=== PATIENT | female | born 1980 | race Caucasian/White ===

== ENCOUNTER 2022-03-27 15:46 | Inpatient (IN) ==
[2022-03-27] MEDS ORDERED: IOPAMIDOL 100 ML BOTTLE IV ONE (15:47)
[2022-03-27] MEDS ORDERED: MECLIZINE 25 MG TABLET PO ONE (16:04)
[2022-03-27] MEDS ORDERED: DIAZEPAM 10 MG/2 ML SYRINGE IV ONE (16:04)
[2022-03-27] MEDS ORDERED: 0.9 % SODIUM CHLORIDE 1,000 ML IV ONE (16:04)
[2022-03-27] MEDS ORDERED: KETOROLAC 30 MG/ML VIAL IV ONE (16:06)
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
[2022-03-27 16:56] LABS: Basophils # (Auto) 0.02 K/mcL (0.00-0.30); Basophils % (Auto) 0.4 % (0.0-2.0); Eosinophils # (Auto) 0.12 K/mcL (0.00-0.70); Eosinophils % (Auto) 2.4 % (0.0-7.0); Hematocrit 38.1 % (34.1-44.9); Hemoglobin 12.8 g/dL (11.2-15.7); Lymphocytes # (Auto) 1.15 K/mcL (1.50-4.80); Lymphocytes % (Auto) 23.1 % (15.5-49.0); Mean Cell Volume 88.8 fL (80.0-100.0); Mean Corpuscular HGB Conc 33.6 g/dL (31.0-36.0); Mean Platelet Volume 10.9 fL (7.4-10.4); Monocytes # (Auto) 0.41 K/mcL (0.10-0.90); Monocytes % (Auto) 8.2 % (1.0-12.0); Neutrophils % (Auto) 65.9 % (38.0-78.0); Platelet Count 269 K/mcL (140-440); RBC 4.29 M/mcL (3.59-5.38); Red Cell Distribution Width 11.5 % (11.5-14.5)
[2022-03-27 17:14] LABS: ALT/SGPT 9 U/L (<40); AST/SGOT 15 U/L (<32); Albumin 3.9 gm/dL (3.2-5.2); Albumin/Globulin Ratio 1.8 (1.0-2.3); Alkaline Phosphatase 78 U/L (39-117); Bilirubin,Total 0.2 mg/dL (0.1-1.0); Blood Urea Nitrogen 12 mg/dL (6-20); Calcium 8.5 mg/dL (8.6-10.4); Carbon Dioxide 24 mmol/L (22-30); Chloride 102 mmol/L (96-108); Globulin 2.2 gm/dL (2.2-3.7); Glomerular Filtration Rate 112; Glucose 94 mg/dL (70-105)
[2022-03-27 17:34] LABS: Appearance,Urine CLEAR (Clear); Bilirubin,Urine Negative (Negative); Color,Urine STRAW; Culture Indicated,Urine No; Glucose,Urine (UA) Negative (Negative); Ketones,Urine Negative (Negative); Leukocyte Esterase,Urine Negative /uL (Negative); Nitrate,Urine Negative (Negative); Protein,Urine Negative (Negative); Urine Blood Negative (Negative); Urobilinogen,Urine Negative
[2022-03-27 17:42] LABS: Amphetamine Screen,Urine None detected; Barbiturate Screen,Urine None detected; Benzodiazepines Screen,Urine None detected; Cannabinoid Screen,Urine None detected; Cocaine Screen,Urine None detected; Opiate Screen,Urine None detected; Oxycodone, Urine Screen None detected; Phencyclidine Screen,Urine None detected
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
[2022-03-27] MEDS ORDERED: ASPIRIN 81 MG TAB.CHEW CHEWED ONE (21:55)
[2022-03-27] MEDS ORDERED: hydrALAZINE 20 MG/ML VIAL IV PRN (22:50)
[2022-03-27] MEDS ORDERED: BISACODYL 10 MG SUPP.RECT PR PRN (22:50)
[2022-03-27] MEDS ORDERED: ONDANSETRON 4 MG/2 ML VIAL IV PRN (22:50)
[2022-03-27] MEDS ORDERED: traMADol 50 MG TABLET PO PRN (22:50)
[2022-03-27] MEDS ORDERED: NALOXONE HCL 0.4 MG/ML VIAL IV PRN (22:50)
[2022-03-27] MEDS ORDERED: DILTIAZEM 25 MG/5 ML VIAL IV PRN (22:50)
[2022-03-27] MEDS ORDERED: PROCHLORPERAZINE 10 MG/2 ML VIAL IV PRN (22:50)
[2022-03-27] MEDS ORDERED: MELATONIN 3 MG TABLET PO PRN (22:50)
[2022-03-27] MEDS ORDERED: ALBUTEROL SULFATE 2.5 MG/3 ML NEBULIZER NEB PRN (22:50)
[2022-03-27] MEDS ORDERED: ONDANSETRON 4 MG ODT TABLET SL PRN (22:50)
[2022-03-27] MEDS ORDERED: ACETAMINOPHEN 325 MG TABLET PO PRN (22:50)
[2022-03-27 23:27] LABS: Prothrombin Time 13.4 sec (11.9-14.5)
[2022-03-27 23:41] LABS: Thyroid Stimulating Hormone 1.33 uIU/mL (0.27-5.01)
[2022-03-28 00:04] LABS: Estimated Average Glucose(eAG) 94 mg/dL; Hemoglobin A1C 4.9 % Hgb (4.0-6.0)
--- NOTE | 2022-03-28 05:06 | XRay Report ---
CLINICAL INFORMATION: Dyspnea COMPARISON: 09/19/2020 TECHNIQUE: Portable FINDINGS: The heart size, mediastinum and pulmonary vessels are unremarkable. The lungs are clear. There are no effusions. The bones and soft tissues are within normal limits. IMPRESSION: Normal chest. Interpreted and Authenticated by: Valentin Jessica 03/28/22
--- NOTE | 2022-03-28 05:10 | Cat Scan Report ---
CLINICAL INFORMATION: Headache and vertigo COMPARISON: 06/27/2017 TECHNIQUE: 2.5 mm helical slices were obtained in the skull base to vertex. Following reconstruction, axial reformatted images were reviewed at bone and parenchymal windows. The exam was performed using radiation dose optimization techniques including, but not limited to, automated exposure control, adjustment of the mA and/or kV according to patient size and use of iterative reconstruction technique. FINDINGS: The ventricles, sulci, fissures, and cisterns are normal in size and configuration. No extra-axial fluid collections are identified. The cerebrum, brainstem and cerebellum are unremarkable. There is no evidence of hemorrhage, mass effect, or edema. Bone windows show no osseous abnormality. IMPRESSION: Normal head CT without contrast. Interpreted and Authenticated by: Valentin Jessica 03/28/22
[2022-03-28] MEDS: 0.9 % SODIUM CHLORIDE 10 ML SYRINGE IV SCH ×3 (05:28→21:02)
--- NOTE | 2022-03-28 06:04 | Cat Scan Report ---
CLINICAL INFORMATION: Vertigo with right-sided weakness and facial numbness. COMPARISON: None. TECHNIQUE: 80 cc of Isovue-370 were injected intravenously , and using SmartPrep to maximize cerebral arterial opacification, 0.625 mm helical slices were obtained from the skull base through the cerebral vertex. Following reconstruction , sagittal, coronal and axial reformatted images were processed and reviewed at multiple windows and levels. 3D volume rendered and MIP images were acquired at a independent workstation. The exam was performed using radiation dose optimization techniques including, but not limited to, automated exposure control, adjustment of the mA and/or kV according to patient size and use of iterative reconstruction technique. FINDINGS: The intracranial internal carotid, vertebral, basilar, anterior, middle and posterior cerebral arteries and their branches are well-opacified and normal in contour and caliber without significant stenosis, occlusion or other pathology. Superficial/deep cerebral veins and deep venous sinuses are widely patent IMPRESSION: Normal exam Interpreted and Authenticated by: Valentin Jessica 03/28/22
--- NOTE | 2022-03-28 06:09 | Cat Scan Report ---
CLINICAL INFORMATION: Vertigo and right-sided weakness COMPARISON: None. TECHNIQUE: 80 cc of Isovue-300 were injected intravenously followed by 40 cc of normal saline flush. Using SmartPrep, 0.625 helical slices were obtained from the thoracic aortic arch through the [place]. Following reconstruction, 2.5 mm sagittal, coronal and axial reformatted images were processed. MIPS , 3-D volume rendering and CPR images were also constructed. The exam was performed using radiation dose optimization techniques including, but not limited to, automated exposure control, adjustment of the mA and/or kV according to patient size and use of iterative reconstruction technique. FINDINGS: The thoracic aortic arch is normal diameter with minimal intimal thickening and conventional aortic branching. The brachiocephalic, both subclavian, both common, internal and external carotid and both vertebral arteries are widely patent without significant abnormality. No soft tissue abnormality. The cervical spine is normal in curvature and alignment. No osseous abnormality. C5-6 mild broad disc protrusion results in mild central canal narrowing. IMPRESSION: Normal bilateral carotid, vertebral, subclavian and brachiocephalic arteries and normal thoracic aortic arch C5-6 mild broad disc protrusion resulting in mild central canal narrowing Interpreted and Authenticated by: Valentin Jessica 03/28/22
[2022-03-28 06:59] LABS: Basophils # (Auto) 0.02 K/mcL (0.00-0.30); Basophils % (Auto) 0.5 % (0.0-2.0); Eosinophils # (Auto) 0.15 K/mcL (0.00-0.70); Hematocrit 35.8 % (34.1-44.9); Hemoglobin 11.7 g/dL (11.2-15.7); Mean Cell Volume 90.2 fL (80.0-100.0); Mean Corpuscular HGB Conc 32.7 g/dL (31.0-36.0); Mean Platelet Volume 10.5 fL (7.4-10.4); Monocytes # (Auto) 0.47 K/mcL (0.10-0.90); Monocytes % (Auto) 12.4 % (1.0-12.0); Neutrophils % (Auto) 46.1 % (38.0-78.0); Platelet Count 244 K/mcL (140-440); RBC 3.97 M/mcL (3.59-5.38); Red Cell Distribution Width 11.3 % (11.5-14.5); WBC 3.8 K/mcL (4.5-11.0)
[2022-03-28 07:36] LABS: ALT/SGPT 8 U/L (<40); AST/SGOT 12 U/L (<32); Albumin 3.5 gm/dL (3.2-5.2); Albumin/Globulin Ratio 1.9 (1.0-2.3); Alkaline Phosphatase 64 U/L (39-117); Bilirubin,Total 0.2 mg/dL (0.1-1.0); Blood Urea Nitrogen 13 mg/dL (6-20); Calcium 8.2 mg/dL (8.6-10.4); Carbon Dioxide 22 mmol/L (22-30); Chloride 107 mmol/L (96-108); Globulin 1.8 gm/dL (2.2-3.7); Glomerular Filtration Rate 112; Glucose 82 mg/dL (70-105)
[2022-03-28 07:37] LABS: C-Reactive Protein < 0.30 mg/dL (0.03-0.80); HDL Cholesterol 29 mg/dL (>40); LDL Cholesterol,Calculated 49 mg/dL (<100); Non-HDL Cholesterol 58 mg/dL (<130); Triglycerides 49 mg/dL (<150)
[2022-03-28] MEDS: DOCUSATE SODIUM 100 MG CAPSULE PO SCH ×2 (08:15→21:02)
[2022-03-28] MEDS: PANTOPRAZOLE 40 MG TABLET PO SCH (08:21)
[2022-03-28] MEDS: ASPIRIN 81 MG TAB.CHEW CHEWED SCH (08:21)
[2022-03-28] MEDS ORDERED: ENOXAPARIN 40 MG/0.4 ML SYRINGE SQ SCH (09:00)
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
--- NOTE | 2022-03-28 13:25 | Internal Med Progress Note ---
SUBJECTIVE Subjective Patient information: Note initiated : 03/28/22 at 1:23 pm Service Date, if different from initiated Date: [] Patient: Mikaela Aguayo 41 y/o F admitted on 03/28/22 for Dizziness, facial numbness. Chief Complaint: [] Interval history: 41-year-old female with a history of PE x2 not on anticoagulation history anxiety was brought to the ER because of dizziness. Patient was complaining of room spinning around initially thought to be BPPV but during encounter patient explained she also has some weakness of the right upper and lower extremity. Stroke neurology was consulted and she is out of the tPA window this was happened around 2 PM underwent CTA of the head and neck and CT which was unremarkable for any large vessel occlusions. Stroke neurologist recommended admitting for MRI and starting her on aspirin 81 mg. Discussed with the patient and earliest we could get an MRI is on Tuesday morning and patient agreed with the plan Patient denied any drug use no history of smoking no alcoholism Patient has family history of clotting disorder never tested for any genetic predisposition. Patient had an episode of PE before the pandemic and was on warfarin then she developed another 1 and changed to Eliquis and later stopped after 1 year. 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 Genitourinary: no dysuria or difficulty voiding Musculoskeletal: no arthralgia or myalgia Integumentary: no skin lesion or wound Neurological: Weakness of the right upper and lower extremity and vertigo Psychiatric: no anxiety or depression Physical exam Head: No bruises, normal-appearing nontraumatic Eyes: normal appearance, no scleral icterus. Neck: full ROM Respiratory: no respiratory distress. Cardiovascular: normal rate and rhythm, S1, S2. GI/Abdominal: soft, nontender, no guarding. Extremities: full range of motion, nontender. Neurological: CN II-XII intact, patient has nystagmus on examination [place]- Hallpike test was negative for BPPV Psychiatric: normal mood. Skin: warm, normal color Constitutional Vitals: Vital Signs Temp Pulse Resp BP Pulse Ox 99.4 F H 69 16 91/56 98 03/28/22 12:01 03/28/22 12:01 03/28/22 12:01 03/28/22 12:01 03/28/22 12:01 Period Temp Pulse Resp BP Sys/Ramirez Pulse Ox Last 24 Hr 98.0 F-99.4 F 57-75 11-21 89-118/56-84 97-100 Intake and Output 03/27/22 03/28/22 03/28/22 21:59 05:59 13:59 Intake Total 1000 240 360 Output Total 900 Balance 1000 240 -540 Weight 55.338 kg 54.794 kg Intake & Output: Intake & Output 03/27/22 03/28/22 03/28/22 21:59 05:59 13:59 Intake Total 1000 240 360 Output Total 900 Balance 1000 240 -540 Weight 55.338 kg 54.794 kg Intake: IV 1000 Sodium Chloride 0.9% 1,000 ml @ 1000 Wide Open IV .Q0M ONE Rx#: [id number] Oral 240 360 Output: Void Amount 900 Other: Meal Breakfast Percent of Meal Consumed 100% Feeding Ability Independent Urine Appearance Clear Urine Color Bright Yellow Urine Odor Normal OBJ DATA Labs CBC & Chem 7: 03/28/22 06:37 03/28/22 06:37 Labs: Abnormal Lab Results 03/28/22 03/28/22 03/28/22 06:37 06:37 06:36 WBC 3.8 L RDW 11.3 L MPV 10.5 H [place] % (Auto) 12.4 H Lymph # (Auto) 1.40 L Absolute Neutrophils 1.74 L Calcium 8.2 L Total Protein 5.3 L Globulin 1.8 L HDL Cholesterol 29 L 03/27/22 03/27/22 16:18 16:18 WBC RDW MPV 10.9 H [place] % (Auto) Lymph # (Auto) 1.15 L Absolute Neutrophils Calcium 8.5 L Total Protein Globulin HDL Cholesterol Meds: Medications Acetaminophen (Acetaminophen 325 Mg Tablet) 650 mg PO Q6HP PRN; Protocol PRN Reason: Per Pain Protocol/Fever > 101 Albuterol Sulfate (Albuterol Sulfate 2.5 Mg/3 Ml Nebulizer) 2.5 mg NEB Q2HP PRN PRN Reason: Shortness Of Breath Aspirin (Aspirin 81 Mg Tab.Chew) 81 mg CHEWED DAILY [place] Last Admin: 05/29/22 08:21 Dose: 81 mg Documented by: Bisacodyl (Bisacodyl 10 Mg Supp.Rect) 10 mg LA Q2-3DAYS PRN PRN Reason: Constipation Diltiazem HCl (Diltiazem 25 Mg/5 Ml Vial) 10 mg IV Q4HP PRN PRN Reason: Tachyarrhythmias Docusate Sodium (Docusate Sodium 100 Mg Capsule) 100 mg PO BID [facility] Last Admin: 03/28/22 08:15 Dose: Not Given Documented by: Enoxaparin Sodium (Enoxaparin 40 Mg/0.4 Ml Syringe) 40 mg SQ DAILY [facility] Last Admin: 03/28/22 08:21 Dose: 40 mg Documented by: Hydralazine HCl (Hydralazine 20 Mg/Ml Vial) 10 mg IV Q4-6HP PRN PRN Reason: Hypertension Melatonin (Melatonin 3 Mg Tablet) 3 mg PO HSP PRN PRN Reason: Insomnia Naloxone HCl (Naloxone Hcl 0.4 Mg/Ml Vial) 0.1 mg IV Q2MIN PRN PRN Reason: Opiate Reversal Ondansetron HCl (Ondansetron 4 Mg/2 Ml Vial) 4 mg IV Q6HP PRN PRN Reason: Nausea And Vomiting Ondansetron HCl (Ondansetron 4 Mg Odt Tablet) 4 mg SL Q6HP PRN PRN Reason: Nausea And Vomiting Pantoprazole Sodium (Pantoprazole 40 Mg Tablet) 40 mg PO QAMAC [facility] Last Admin: 03/28/22 08:21 Dose: 40 mg Documented by: Prochlorperazine (Prochlorperazine 10 Mg/2 Ml Vial) 5 mg IV Q4HP PRN PRN Reason: Nausea And Vomiting Senna (Sennosides 1 Tablet) 2 tab PO [facility] Sodium Chloride (0.9 % Sodium Chloride 10 Ml Syringe) 10 ml IV Q8 [facility] Last Admin: 03/28/22 05:28 Dose: 10 ml Documented by: Tramadol HCl (Tramadol 50 Mg Tablet) 50 mg PO Q4-6HP PRN; Protocol PRN Reason: Pain Trazodone HCl (Trazodone Hcl 50 Mg Tablet) 25 mg PO HSP PRN PRN Reason: Insomnia A/P Narrative Plan of Treatment: Suspected acute CVA Possible hypercoagulability History of PE x2 no hypercoagulable work-up per report not on active anticoagulation CTA and CT did not show any occlusive disease We will start the patient on aspirin and statin 40 mg Monitor blood pressure permissive hypertension 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 ordered the earliest we could obtain is on Tuesday History of epilepsy Last episode was 20 years ago not on any active treatment Lorazepam as needed for seizure episodes History of anxiety Monitor the patient on lorazepam as needed Recent ankle surgery More than 4 weeks ago Monitor for any pain DVT prophylaxis-SCDs and subcu Lovenox CODE STATUS-full code Expect length of stay 1-2 midnights Time Spent With Patient Time: Total time spent is greater than 50% in coordination of care (as documented) at patient's floor/unit and/or counseling patient: QUALITY Stroke Onset of Symptoms Date: 03/27/22 Onset of Symptoms Time: 14:00 Symptom Onset Unknown: No VTE Deep Vein Thrombosis/Pulmonary Embolism Present on Admission: No
[2022-03-28] MEDS: 0.9 % SODIUM CHLORIDE 1,000 ML IV SCH ×2 (13:38→21:04)
[2022-03-28] MEDS ORDERED: GABAPENTIN 100 MG CAPSULE PO SCH (13:45)
[2022-03-28] MEDS ORDERED: HYDROcodone/APAP 5/325MG TABLET PO PRN (16:52)
[2022-03-28] MEDS ORDERED: EXCEDRIN MIGRAINE PO PRN (17:28)
[2022-03-28] MEDS ORDERED: SENNOSIDES 1 TABLET PO SCH (21:00)
[2022-03-28] MEDS: traZODone HCL 50 MG TABLET PO PRN ×2 (21:01→22:47)
[2022-03-28] MEDS: GABAPENTIN 100 MG CAPSULE PO SCH (21:02)
[2022-03-28] MEDS ORDERED: IOPAMIDOL 100 ML BOTTLE IV ONE (21:52)
[2022-03-29] MEDS: 0.9 % SODIUM CHLORIDE 1,000 ML IV SCH ×2 (01:03→07:36)
[2022-03-29] MEDS ORDERED: APIXABAN 5 MG TABLET PO ONE (01:33)
[2022-03-29] MEDS: APIXABAN 5 MG TABLET PO SCH ×2 (01:37→07:43)
[2022-03-29] MEDS: 0.9 % SODIUM CHLORIDE 10 ML SYRINGE IV SCH ×2 (05:12→13:13)
[2022-03-29 06:54] LABS: Basophils # (Auto) 0.02 K/mcL (0.00-0.30); Basophils % (Auto) 0.6 % (0.0-2.0); Eosinophils # (Auto) 0.17 K/mcL (0.00-0.70); Eosinophils % (Auto) 5.1 % (0.0-7.0); Hematocrit 36.4 % (34.1-44.9); Hemoglobin 11.4 g/dL (11.2-15.7); Lymphocytes # (Auto) 1.26 K/mcL (1.50-4.80); Lymphocytes % (Auto) 37.8 % (15.5-49.0); Mean Cell Volume 93.1 fL (80.0-100.0); Mean Corpuscular HGB Conc 31.3 g/dL (31.0-36.0); Mean Platelet Volume 10.5 fL (7.4-10.4); Monocytes # (Auto) 0.39 K/mcL (0.10-0.90); Monocytes % (Auto) 11.7 % (1.0-12.0); Neutrophils % (Auto) 44.8 % (38.0-78.0); Platelet Count 241 K/mcL (140-440); RBC 3.91 M/mcL (3.59-5.38); Red Cell Distribution Width 11.5 % (11.5-14.5); WBC 3.3 K/mcL (4.5-11.0)
[2022-03-29] MEDS: PANTOPRAZOLE 40 MG TABLET PO SCH (07:10)
[2022-03-29 07:11] LABS: ALT/SGPT 8 U/L (<40); AST/SGOT 14 U/L (<32); Albumin 3.4 gm/dL (3.2-5.2); Albumin/Globulin Ratio 1.8 (1.0-2.3); Alkaline Phosphatase 64 U/L (39-117); Bilirubin,Total 0.2 mg/dL (0.1-1.0); Blood Urea Nitrogen 8 mg/dL (6-20); Calcium 8.1 mg/dL (8.6-10.4); Carbon Dioxide 21 mmol/L (22-30); Chloride 110 mmol/L (96-108); Globulin 1.9 gm/dL (2.2-3.7); Glomerular Filtration Rate 128; Glucose 83 mg/dL (70-105)
[2022-03-29] MEDS: ASPIRIN 81 MG TAB.CHEW CHEWED SCH (07:42)
[2022-03-29] MEDS: DOCUSATE SODIUM 100 MG CAPSULE PO SCH ×2 (07:43→07:44)
[2022-03-29] MEDS: GABAPENTIN 100 MG CAPSULE PO SCH (07:43)
--- NOTE | 2022-03-29 08:30 | Cat Scan Report ---
INDICATION: h/o pe x 2 acute chest pain COMPARISON: Previous CT scan dated 06/26/2020 TECHNIQUE: Axial images obtained through the chest. 41ml Isovue 370 injected intravenously, and scanning was performed during pulmonary arterial phase. Sagittally and coronally reformatted images were obtained. MIP reformatted images. FINDINGS: The examination was initially interpreted by [facility] Lungs:Pleural-based left lower lobe pulmonary parenchymal density is unchanged. This is probably secondary to previous pulmonary infarction and chronic scarring. Lungs are otherwise negative. There is no bronchiectasis. No honeycombing. No acute parenchymal infiltrate or mass. Mediastinum, vascular:Main pulmonary artery, right pulmonary artery, left pulmonary artery are negative. No pulmonary arterial enlargement. No CT evidence for pulmonary arterial hypertension. There is an irregular intraluminal filling defect within the left lower lobe pulmonary parenchymal artery extending into proximal segmental branches. This is unchanged since 06/26/2020. Recurrent pulmonary embolism is considered very unlikely and this appearance is most consistent with chronic pulmonary embolism and intraluminal web formation. No acute pulmonary embolism. No new intraluminal abnormality. Heart:No cardiomegaly. No pericardial effusion. No significant cardiomegaly. There is no reflux of contrast material into the hepatic veins or inferior vena cava. No evidence for right heart strain Pleura:No significant pleural effusion. No pleural mass or calcification Axilla, supraclavicular regions, chest wall:No pathologic axillary or supraclavicular adenopathy. Musculoskeletal:Negative thoracic spine. No compression fracture. No lytic lesion. No rib or sternal lesions Upper Abdomen:Negative IMPRESSION: 1. Chronic pulmonary embolism with intraluminal abnormality in the left lower lobe pulmonary artery and proximal segmental branches. 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 No acute pulmonary embolism 3. No significant enlargement of the main pulmonary artery, right pulmonary artery, left pulmonary artery. No CT findings of pulmonary arterial hypertension 4. No contrast reflux. No evidence for right heart strain The exam was performed using radiation dose optimization techniques including, but not limited to, automated exposure control, adjustment of the mA and/or kV according to patient size and use of iterative reconstruction technique. Interpreted and Authenticated by: Valentin Soto 03/29/22
[2022-03-29] MEDS ORDERED: NICOTINE 21 MG PATCH TOPICAL SCH (10:00)
--- NOTE | 2022-03-29 10:29 | Magnetic Resonance Report ---
INDICATION: new acute cva TECHNIQUE: Limited MRI scan. Sagittal T1-weighted images. Axial flair and T2 weighted images. Axial diffusion weighted images and ADC imaging COMPARISON: Brain CT scan dated 03/27/2022 FINDINGS: No restricted diffusion. No acute infarction. There are scattered small foci of increased signal intensity in the white matter of both cerebral hemispheres. Findings are nonspecific. No localized mass effect. No acute abnormality. No cerebral atrophy or hydrocephalus. No extra-axial come intracranial abnormality. Normal flow void within vessels at the base of the brain. IMPRESSION: No acute infarction. Interpreted and Authenticated by: Valentin Soto 03/29/22
--- NOTE | 2022-03-29 11:42 | Discharge Summary ---
Discharge Provider Provider IMPORTANT FOLLOW-UP INFORMATION FOR PCP: Patient information: Note initiated : 03/29/22 at 11:41 am Service Date, if different from initiated Date: [] Patient: Mikaela Aguayo 41 y/o F admitted on 03/28/22 for Dizziness, facial numbness. Chief Complaint: [] Date of admission: 03/28/22 00:13 Discharge date: 03/29/22 Primary care physician: Cinthia Gu DO Consults: 03/27/22 Consult to Physician [CONS] Stat Comment: Consulting Provider: Lynette Do Reason For Exam: Physician to Consult COURSE Hospital Course Hospital course: Suspected acute CVA -MRI negative Possible BPPV Possible hypercoagulability Patient presented with active vertigo and reported hand numbness and tingling and weakness History of PE x2 no hypercoagulable work-up per report not on active anticoagulation CTA and CT of the head did not show any occlusive disease We will start the patient on aspirin and statin 40 mg MRI came back negative for any acute stroke Telemetry was unremarkable Patient's symptoms resolved Based on her presentation and other work-up this could be either an embolic TIA or BPPV Patient did have history of BPPV in the past Plan If she continued having symptoms or recurrence she needs to establish with a neurology Outpatient physical therapy and meclizine as needed Starting her on Eliquis with a history of 2 episodes of PE and 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 History of thromboembolism Patient does have history of thromboembolism x2 Underwent CTA due to episodes of chest pain She does have chronic thrombus in the left suspect subsegmental Because of the chronic thrombus starting her on Eliquis and with a 2 episodes of PE She also needs to establish with hematology for genetic work-up History of epilepsy Last episode was 20 years ago not on any active treatment Lorazepam as needed for seizure episodes History of anxiety Monitor the patient on lorazepam as needed Recent ankle surgery More than 4 weeks ago Monitor for any pain 41-year-old female with a history of PE x2 not on anticoagulation history anxiety was brought to the ER because of dizziness. Patient was complaining of room spinning around initially thought to be BPPV but during encounter patient explained she also has some weakness of the right upper and lower extremity. Stroke neurology was consulted and she is out of the tPA window this was happened around 2 PM underwent CTA of the head and neck and CT which was unremarkable for any large vessel occlusions. Stroke neurologist recommended admitting for MRI and starting her on aspirin 81 mg. Discussed with the patient and earliest we could get an MRI is on Tuesday morning and patient agreed with the plan Patient denied any drug use no history of smoking no alcoholism Patient has family history of clotting disorder never tested for any genetic predisposition. Patient had an episode of PE before the pandemic and was on warfarin then she developed another 1 and changed to Eliquis and later stopped after 1 year. 03/28 She is feeling better No worsening symptoms surveillance system monitor unremarkable 03/29 She underwent MRI which did not show any acute ischemia or infarction This could still be an embolic TIA or BPPV Patient's symptoms significantly improved she did not have any dizziness during my encounter she was sitting up from laying down Patient reported symptoms only happen when she moves quickly which is against stroke Advised the patient to follow-up with neurology if she continued having symptoms Follow-up with the primary care We will discharge her on meclizine for symptoms and outpatient physical therapy as needed Review of systems Constitutional: No reported fatigue no chills, no fever Eyes: no vision changes or pain Cardiovascular: no chest pain, no palpitations Respiratory: no cough or dyspnea Gastrointestinal: no nausea and stil have abdominal discomfort. Genitourinary: no dysuria or difficulty voiding Musculoskeletal: no arthralgia or myalgia Integumentary: no skin lesion or wound Neurological: no focal weakness or numbness dizziness improved significantly Psychiatric: no anxiety or depression Physical exam Head: No bruises, normal-appearing nontraumatic Respiratory: no respiratory distress. Cardiovascular: normal rate and rhythm, S1, S2. GI/Abdominal: soft, nontender, no guarding. Extremities: full range of motion, nontender. Neurological: CN II-XII intact, intact motor, intact sensation. Psychiatric: Appears to be anxious Discharge diagnosis: Vertigo -suspected CVA, BPPV Time Spent with Patient Time attestation: Total time spent providing and/or coordinating discharge services: Time spent: Greater than 30 minutes EXAM Constitutional Vitals: Temp Pulse Resp BP Pulse Ox 98.6 F 75 16 92/63 97 03/29/22 07:41 03/29/22 08:09 03/29/22 03:51 03/29/22 08:00 03/29/22 08:09 Discharge Data Data Completed and Pending Labs on day of discharge: Labs from last 24 hours 03/29/22 03/29/22 03/29/22 06:12 06:12 06:12 WBC 3.3 L RBC 3.91 Hgb 11.4 Hct 36.4 MCV 93.1 MCH 29.2 MCHC 31.3 RDW 11.5 Plt Count 241 MPV 10.5 H Neut % (Auto) 44.8 Lymph % (Auto) 37.8 Floyd % (Auto) 11.7 Eos % (Auto) 5.1 Baso % (Auto) 0.6 Lymph # (Auto) 1.26 L Floyd # (Auto) 0.39 Eos # (Auto) 0.17 Baso # (Auto) 0.02 Absolute Neutrophils 1.49 L Sodium 139 Potassium 3.8 Chloride 110 H Carbon Dioxide 21 L Anion Gap 8.0 BUN 8 Creatinine 0.4 L GFR Calculation 128 Glucose 83 Calcium 8.1 L Magnesium 2.1 Total Bilirubin 0.2 AST 14 ALT 8 Alkaline Phosphatase 64 Troponin T < 0.01 Total Protein 5.3 L Albumin 3.4 Globulin 1.9 L Albumin/Globulin Ratio 1.8 03/28/22 20:52 WBC RBC Hgb Hct MCV MCH MCHC RDW Plt Count MPV Neut % (Auto) Lymph % (Auto) Floyd % (Auto) Eos % (Auto) Baso % (Auto) Lymph # (Auto) Floyd # (Auto) Eos # (Auto) Baso # (Auto) Absolute Neutrophils Sodium Potassium Chloride Carbon Dioxide Anion Gap BUN Creatinine GFR Calculation Glucose Calcium Magnesium Total Bilirubin AST ALT Alkaline Phosphatase Troponin T < 0.01 Total Protein Albumin Globulin Albumin/Globulin Ratio Discharge Plan Patient/Caregiver Discharge Instructions Activity: increase activity as tolerated Diet: Regular Diet Activity Restrictions/Additional Instructions: If continued having vertigo symptoms and establish with neurology for further evaluation Follow-up with primary care in 1 week Start taking Eliquis 5 mg twice daily as he had history of 2 episodes of PE with 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 Prescriptions: New meclizine 25 mg tablet 25 mg PO BID PRN (Reason: VERTGO) Qty: 10 0RF Eliquis 5 mg tablet 5 mg PO BID Qty: 60 2RF Discontinued amoxicillin-pot clavulanate [Augmentin] 500-125 mg tablet 1 tab PO BID Qty: 13 0RF No Action acetaminophen 500 mg Tablet 2 mg PO PRN PRN (Reason: Pain) 0RF gabapentin 100 mg capsule 1 cap PO BID 0RF Follow Up Plan Follow up with: [facility] [Outside] (Vertigo) Cinthia Gu DO [Primary Care Provider] - Patient Disposition: Home, Self-Care Prognosis: Fair Rehab Potential: Fair I certify that the patient requires SNF services: No Overall status at discharge: patient is progressing back to baseline Discharge Orders: Discharge Order (Routine); Ordered 03/29/22 Ordered By: Lynette RIOS VTE Deep Vein Thrombosis/Pulmonary Embolism Present on Admission: No
--- NOTE | 2022-03-29 20:42 | EKG ---
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
--- NOTE | 2022-03-29 20:43 | EKG ---
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
== END 2022-03-29 14:15 | disposition home or self-care (01) | DRG 149 ==
LOC: ED 15:46 → ICU 03-28 00:13
PROVIDERS: ADMIT Internal Medicine; ATTEND Internal Medicine